=== PATIENT | male | born 1950 | race Caucasian/White ===

== ENCOUNTER 2022-06-25 13:26 | Emergency (ER) | payer MEDICARE, MEDICAID, SELFPAY ==
[2022-06-25 13:58] VITALS: BP 170/83; PULSE 59; RESP 20; TEMP 36.6; O2SAT 99; BMI 28.8
--- NOTE | 2022-06-25 15:29 | DI.MRI.S_ITS ---
PROCEDURE: MR LUMBAR SPINE WO CON INDICATIONS: back pain rt leg weakness urinary incont TECHNIQUE: Noncontrast sagittal T1 spin echo and T2 fast echo, sagittal STIR, and T2 fast spin echo through the lumbar spine. In cases with scoliosis, additional coronal T2 fast spin echo may be performed. COMPARISON: None. FINDINGS: Image quality: Excellent. Alignment and Curvature: Trace 2-3 mm of retrolisthesis of L1 on L2 and L2 on L3. Bone Marrow: No acute fracture. There is multilevel disc desiccation. Small annular fissure is seen at L4-L5. Spinal Cord: Cord terminates at T12. Normal appearance of the cauda equina nerve roots. Paraspinous Soft Tissues: No paravertebral masses. T12-L1: There is a central protrusion and a small diffuse disc bulge. Mild central narrowing without critical stenosis. The neural foramen are patent. L1-L2: There is a diffuse disc bulge with bilateral facet arthropathy. Mild displacement of the subarticular recesses bilaterally. Mild bilateral neural foraminal narrowing. L2-L3: There is a diffuse disc bulge, with an asymmetric extrusion in the right paracentral zone. Near complete effacement of the right subarticular recess with displaced L3 nerve root. There is also mild left subarticular recess narrowing. Mild left neural foraminal narrowing and moderate right neural foraminal narrowing. L3-L4: There is a diffuse disc bulge and facet arthropathy. Mild to moderate bilateral subarticular recess narrowing. Mild bilateral neural foraminal narrowing. L4-L5: Diffuse disc bulge and a small central protrusion. Facet arthropathy. Mild bilateral neural foraminal narrowing. L5-S1: Right paracentral protrusion with moderately effaced right subarticular recess. Superimposed bulge and facet arthropathy. [id number] right and left neural foraminal narrowing. IMPRESSION: Spondylosis as described above, characterized primarily by disc disease. There is a large right paracentral extrusion displacing the L3 nerve root at the L2-L3 subarticular recess. The traversing S1 nerve root at L5-S1 is also displaced by a disc protrusion. No critical central stenosis to suggest cauda equina syndrome. Dictated by: Juan Antonio Kincaid M.D. on 06/25/2022 at 16:37 Approved by: Juan Antonio Kincaid M.D. on 06/25/2022 at 16:44
--- NOTE | 2022-06-25 18:40 | ED.EXTPRO ---
HPI - Extremity Problem General Chief complaint: Extremity Problem,Nontraumatic Stated complaint: Sent for MRI by Time Seen by Provider: 06/25/22 18:40 Source: patient Mode of arrival: Wheelchair Limitations: no limitations History of Present Illness HPI Narrative: This is a 72-year-old male with history of Crohn's disease on Remicade and methotrexate with acute on chronic right low back pain. Patient states over the last several weeks he is had increasing right back pain that radiates down his leg initially was just down to his knee now it is down the whole leg. He is had some paresthesias that started at the upper thigh in our down the entire leg. He states he has sensation but it is clearly different right compared to left. Patient had quick movement today that rapidly worsened his pain. He states no urinary incontinence he knows that he needs to urinate but he is having trouble make into the bathroom sometimes because it is so painful to walk. Patient has had chronic rectal issues secondary to Crohn's disease and injury from Crohn surgeries and colon resection. No saddle anesthesia. Patient denies fevers or chills. No other GI or urinary symptoms. Patient has been taking hydrocodone 1 tablet every 8 hours along with gabapentin and ibuprofen and states his pain has been moderately well controlled. Patient has not had any prior back surgeries or interventions. Has had colon resection for his Crohn disease in the past. Patient was seeing 1 of the providers at the urgent care it would be saw him last week was asked to come back for recheck this week pain had worsened after movement and they suggested he come here for MRI today. Related Data Previous Rx's Medication Instructions Recorded hydrocodone 5 mg-acetaminophen 325 1 tab PO Q6H PRN pain #20 tabs 06/25/22 mg tablet methylprednisolone 4 mg tablets in See Rx Instructions PO .COMPLEX 06/25/22 a dose pack (Medrol (Akin)) #15 ea Review of Systems Review of Systems ROS Unobtainable: All systems reviewed & are unremarkable except as noted in HPI and below Patient History Social History Smoking Status: Never smoker Smoking Status: Never smoker Substance Use Type: does not use Exam Narrative Exam Narrative: GENERAL: Alert and oriented x three, male in mild distress. HEENT: Head normocephalic, atraumatic, EOMI, pupils reactive, face symmetric, moist mucous membranes NECK: Supple, full range of motion CARDIOVASCULAR: Regular rate and rhythm without murmurs, rubs or gallops. RESPIRATORY: Breath sounds equal bilaterally, no wheezes rales or rhonchi. ABDOMEN: Soft, nontender. Normoactive bowel sounds all 4 quadrants. No guarding or rebound, rigidity, no mass : No CVA tenderness BACK: No cervical, thoracic or lumbar vertebral point tenderness. Patient has decreased range of motion. Patient's gait is intact. No saddle anesthesia. Muscle strength is 5/5 in lower extremities, patient has slightly decreased strength with dorsiflexion on the right compared to left. DTRs are 2/4 and lower extremities. Dorsalis pedis and tibialis pulses are 2+ and lower extremities. Sensation is intact in the lower extremities although patient does appreciate difference in right versus left. EXTREMITIES: Normal range of motion, no clubbing or edema. Neurovascularly intact NEUROLOGICAL: Cranial nerves II through XII grossly intact. Moving all extremities SKIN: Warm, dry, no petechiae, no rashes or lesions. Initial Vital Signs Initial Vital Signs: Vital Signs Temperature 97.8 F 06/25/22 13:58 Pulse Rate 59 L 06/25/22 13:58 Respiratory Rate 20 06/25/22 13:58 Blood Pressure 170/83 H 06/25/22 13:58 Pulse Oximetry 99 06/25/22 13:58 Oxygen Delivery Method 06/25/22 13:58 Course Orders Ordered: Discontinued Medications Hydrocodone Bitart/Acetaminophen (Hydrocodone/Acet 5/325 Tablet) 2 tab PO NOW ONE Stop: 06/25/22 18:58 Last Admin: 06/25/22 19:13 Dose: 2 tab Documented By: ANDRESSA Ibuprofen (Ibuprofen 400 Mg Tablet) 800 mg PO NOW ONE Stop: 06/25/22 18:58 Last Admin: 06/25/22 19:13 Dose: 800 mg Documented By: AP Consultations Consultation #1: Dr. Billings, orthopedics. Review patient's exam and MRI findings. He asked the patient call tomorrow and they will get him in to the office this upcoming week to get him scheduled for treatment. Recommends Medrol Dosepak if no contraindication Time: 19:02 Vital Signs Vital signs: Vital Signs - 8 hr 06/25/22 13:58 Temperature 97.8 F Pulse Rate 59 L Respiratory Rate 20 Blood Pressure 170/83 H Pulse Oximetry 99 Oxygen Delivery Method Room Air MDM - Extremity (Nontraumatic) Imaging Data MRI Lumbar spine: Radiologist's Impression: Rajat Lui??72??M??1950 ? Allergy/Adv: Not Recorded Close Lumbar Spine MRI (Signed) Juan Antonio Kincaid - 06/25/22 Launch?[address] [address] Magnetic Resonance Report Signed Patient: Rajat Lui MR#: [id number] : 1950 Acct:[id number] Age/Sex: 72 / M Date of Service: 06/25/22 Loc: ED Accession Number: [id number] ?? Procedure: MR lumbar spine wo con Ordering Provider: Franchesca Almendarez D.O. PROCEDURE:? MR LUMBAR SPINE WO CON ? INDICATIONS:? back pain rt leg weakness urinary incont ? TECHNIQUE:? Noncontrast sagittal T1 spin echo and T2 fast echo, sagittal STIR, and T2 fast spin echo through the lumbar spine.? In cases with scoliosis, additional coronal T2 fast spin echo may be performed.? ? COMPARISON:? None. ? FINDINGS:? Image quality:? Excellent.? ? Alignment and Curvature:? Trace 2-3 mm of retrolisthesis of L1 on L2 and L2 on L3. ? Bone Marrow:? No acute fracture.? There is multilevel disc desiccation.? Small annular fissure is seen at L4-L5. ? Spinal Cord:? Cord terminates at T12.? Normal appearance of the cauda equina nerve roots. ? Paraspinous Soft Tissues:? No paravertebral masses.? ? T12-L1:? There is a central protrusion and a small diffuse disc bulge.? Mild central narrowing without critical stenosis.? The neural foramen are patent. ? L1-L2:? There is a diffuse disc bulge with bilateral facet arthropathy.? Mild displacement of the subarticular recesses bilaterally.? Mild bilateral neural foraminal narrowing. ? L2-L3:? There is a diffuse disc bulge, with an asymmetric extrusion in the right paracentral zone.? Near complete effacement of the right subarticular recess with displaced L3 nerve root.? There is also mild left subarticular recess narrowing.? Mild left neural foraminal narrowing and moderate right neural foraminal narrowing. ? L3-L4:? There is a diffuse disc bulge and facet arthropathy.? Mild to moderate bilateral subarticular recess narrowing.? Mild bilateral neural foraminal narrowing. ? L4-L5:? Diffuse disc bulge and a small central protrusion.? Facet arthropathy.? Mild bilateral neural foraminal narrowing. ? L5-S1:? Right paracentral protrusion with moderately effaced right subarticular recess.? Superimposed bulge and facet arthropathy.? Phyq-gj-uluawozz right and left neural foraminal narrowing. ? ? IMPRESSION:? Spondylosis as described above, characterized primarily by disc disease.? There is a large right paracentral extrusion displacing the L3 nerve root at the L2-L3 subarticular recess.? The traversing S1 nerve root at L5-S1 is also displaced by a disc protrusion. ? No critical central stenosis to suggest cauda equina syndrome. ? ? Dictated by: Juan Antonio Kincaid M.D. on 06/25/2022 at 16:37 ? ? Approved by: Juan Antonio Kincaid M.D. on 06/25/2022 at 16:44?? MDM Narrative Medical decision making narrative: This is a 72-year-old male with chronic back discomfort with sudden increase in right lower extremity pain and paresthesias with mild weakness with dorsiflexion but otherwise normal strength. Patient does not have any new incontinence although notes has trouble making it to the bathroom. Patient's MRI shows a large right paracentral extrusion displacing the L3 nerve root at L2 on 3 subarticular recess as well as a transversing S1 nerve root that is displaced by disc protrusion. Discussed with Orthopedic surgery recommends Medrol Dosepak, patient notes his pain is fairly well controlled on current pain regimen of hydrocodone, gabapentin and ibuprofen. Orthopedic surgery will see him this coming week and ask that patient call tomorrow morning. Discharge Plan Departure Patient Disposition: Home Clinical Impression: Lumbar back pain with radiculopathy affecting right lower extremity Instructions: DI for Lumbar Radiculopathy Activity Restrictions/Additional Instructions: Call Dr. Billings's office to set up follow-up in the next week he is aware of your MRI findings. Contact information is included below. There is a large right paracentral extrusion displacing the L3 nerve root which is likely the main cause of your symptoms today. You may continue [place] 1 tablet every 6-8 hours as needed along with your gabapentin. You may also continue ibuprofen up to 600 mg every 6 hours as needed. Please take steroids until completely gone. Prescription sent to [facility] in [place]. Please return for rapidly worsening symptoms, loss of bowel bladder control, increasing weakness, loss of sensation inability to lift or move her leg, intractable pain or other new or concerning symptoms. Prescriptions: New hydrocodone-acetaminophen 5-325 mg tablet 1 tab PO Q6H PRN (Reason: pain) Qty: 20 0RF methylprednisolone [Medrol (Akin)] 4 mg tablets,dose pack See Rx Instructions .ROUTE .COMPLEX Qty: 15 0RF Rx Instructions: Take 5 tablets p.o. x1 day, then 4 tablets p.o. x1 day, then 3 tablets p.o. x1 day, then 2 tablets p.o. x1 day, then 1 tablet p.o. x1 Referrals: Lois Mcpherson, [employer] [Primary Care Provider] - Elvia Billings MD [Physician] - Visit Report Forms: Patient Portal/API
[2022-06-25] MEDS: HYDROCODONE/ACET 5/325 TABLET 2 TAB PO (19:13)
[2022-06-25] MEDS: IBUPROFEN 400 MG TABLET 800 MG PO (19:13)
[2022-06-25 19:19] VITALS: BP 198/96; PULSE 88; RESP 18; O2SAT 98
== END 2022-06-25 19:34 | disposition home or self-care (01) ==
PROVIDERS: Emergency Provider Emergency Medicine; PCP Registered Nurse; Referring Provider Emergency Medicine
DX: M54.16 Radiculopathy, lumbar region (principal); M54.50 Low back pain, unspecified
CPT/HCPCS: 72148; 99283

== ENCOUNTER 2022-08-06 10:26 | Inpatient (IN) | payer MEDICARE, MEDICAID, SELFPAY ==
[2022-07-30 13:50] VITALS: BMI 28.6
[2022-08-06] VITALS (15 sets, daily range): BP systolic 121–168; BP diastolic 62–93; PULSE 56–74; RESP 10–25; TEMP 36.4–37.2; O2SAT 93–996; BMI 29.1; BMI 29.5
--- NOTE | 2022-08-06 | DI.RAD.S_ITS ---
PROCEDURE: XR LUMBAR SPINE 2-3V INDICATIONS: L2-3 TLIF TECHNIQUE: 2 views of the lumbar spine were acquired. COMPARISON: [facility] Outside Film, CT, CT LUMBAR SPINE WITHOUT CONTRAST, 06/18/2022, 10:58. [facility], MR, MR LUMBAR SPINE WO CON, 06/25/2022, 15:40. FINDINGS: Submitted fluoroscopic images demonstrate posterior/interbody fusion at the presumed L2-L3 level with posterior fixation hardware and intervertebral spacer in expected position. IMPRESSION: Fluoroscopic images demonstrating posterior/interbody fusion at the L2-L3. Dictated by: Michael Bahena [facility] Interpreted: Jez Herndon MD on 08/06/2022 at 16:53 Transcribed by: [place] on 08/06/2022 at 16:53 Approved by: Jez Herndon M.D. on 08/06/2022 at 17:08
[2022-08-06 11:21] LABS: COVID19 -Nasal RAPID Negative (Negative)
[2022-08-06] MEDS: FAMOTIDINE 20 MG/2 ML VIAL IV (13:42)
[2022-08-06] MEDS: GABAPENTIN 300 MG CAPSULE PO ×2 (13:42→21:01)
--- NOTE | 2022-08-06 13:43 | PM.PREOP ---
Pre-operative Note COVID-19 COVID-19 status: Negative Result date/Date tested (Pos, Neg/Pending): 08/05/22 Criteria for continued procedure: Expected advancement of disease process, Possibility delay results in more complex future surgery or treatment, Increased loss of function, Continuing or worsening of significant or severe pain, Deterioration of the patient's condition or overall health and Delay expected to result in less-positive ultimate med/surg outcome Interval Note History & Physical reviewed/Exam performed by Physician: Yes Changes to H&P: No
[2022-08-06] MEDS: LACTATED RINGERS 1,000 ML 42 ML IV (13:47)
--- NOTE | 2022-08-06 14:19 | PM.HP.1 ---
History of Present Illness History of Present Illness Date Patient Seen: 08/06/22 Time Patient Seen: 14:19 Date of Onset of Symptoms: 07/25/20 Chief complaint: Lumbar TILF Narrative: Mr. Lui is a 72 yo M with chronic back pain and right sided radiculopathy failing conservative care. After discussing risks and benefits of treatment options, patient elected to proceed with surgery. Patient History Medical History Acid reflux Brain aneurysm (~2009) Crohn's disease Dyslexia Fistula Herniated disc HLD (hyperlipidemia) HTN (hypertension) Irregular heart beat TONIE on CPAP Sensitive skin Small bowel obstruction Spinal stenosis Surgical History History of colonoscopy Hx of abdominal surgery Hx of appendectomy Hx of total colectomy Family & Social History Social History: household members none Prior Living Arrangements Mobile home Safety & Behavioral: Feels Safe in Current Yes Environment Been Physically Hurt or No Threatened By a Person Suicidal Ideation Description None Suicide Plan Description No Plan Tobacco & Substance use: Tobacco type pipe Smoking Status Former smoker alcohol intake never Substance Use Type does not use Meds Home Medications and Allergies Home Medications Medication Instructions Recorded Confirmed Type hydrocodone 5 mg-acetaminophen 325 1 tab PO Q6H PRN pain #20 tabs 06/25/22 08/06/22 Rx mg tablet amlodipine 5 mg tablet 5 mg PO DAILY 07/30/22 08/06/22 History aspirin 81 mg tablet,delayed 81 mg PO DAILY 07/30/22 08/06/22 History release diphenoxylate-atropine 2.5 2 tab PO QID PRN related to 07/30/22 08/06/22 History mg-0.025 mg tablet multiple liquid stools gabapentin 300 mg capsule 300 mg PO TID 07/30/22 08/06/22 History methotrexate sodium 2.5 mg tablet 2.5 mg PO SEEINSTR 07/30/22 08/06/22 History simvastatin 10 mg tablet 10 mg PO BEDTIME 07/30/22 08/06/22 History tizanidine 4 mg capsule 4 mg PO TID PRN Muscle Spasm 07/30/22 08/06/22 History Allergies Allergy/AdvReac Type Severity Reaction Status Date / Time adhesive tape Allergy Intermediate Rash with Verified 08/06/22 11:29 bandaids morphine AdvReac Severe Hallucinating Verified 08/06/22 11:29 with IV Morphine sulfasalazine AdvReac Severe It makes Verified 08/06/22 11:29 me crash, I can't eat or digest anything Exam Vital Signs (past 8 hours): - 08/06/22 11:34 Temperature 98.9 F Pulse Rate 56 L Respiratory Rate 16 Blood Pressure 149/71 H Pulse Oximetry 95 Oxygen Delivery Method Room Air Oxygen Delivery Method Room Air Back/Spine/Pelvis Other: painful movement of lumbar range of motion in the lumbar area. Neuro Other: BLE with weakness in hip flexion 4/5, + straight leg raise to the RLE. Sensiblity decreased to bilateral L2, L3 dermatome Objective Labs Labs: Laboratory Results - last 24 hr 08/06/22 10:43 SARS-CoV-2 (PCR) Negative Assessment & Plan Assessment & Plan narrative: Mr. Lui is a 72 yo M with acute on chronic back pain and recent worsening neurologic function with leg pain, weakness and development of urinary incontinence. He has a L2-3 extruded disc causing severe spinal stenosis and L2-3 level with spondylolisthesis measuring 5 mm. I discussed my findings with him. I discussed treatment options. Due to his rapidly deteriorating neurologic status and development of urinary incontinence, I am concerned about developement of cauda equina syndrome soon. I discussed treatment options with risks and benefits. He may benefit from L2-3 decompression with laminectomy and total facetectomies, which will render the already unstable L2-3 level further unstable and require a fusion procedure at the same time. Risks for surgery include but not limited to bleeding, infection, nerve/dura/bladder/bowel/blood vessel injury, need for additional procedure, even . Patient understands and would like to proceed with surgery. Time Spent With Patient Critical Care time: I spent a total of [] minutes of critical care time on this patient's care today; this time is exclusive of procedural time.
[2022-08-06] MEDS: CEFAZOLIN 2 GM/100 ML PREMIX 100 ML IV ×2 (14:27→22:07)
--- NOTE | 2022-08-06 14:57 | SUR.OPER ---
Prone on padded OR bed, head in foam head support, gel chest rolls, gel pad under knees, pillow under lower legs, toes free of pressure, arms secured on padded arm boards at <90 degrees abduction. Tape at thigh.
[2022-08-06] MEDS: BUPIVACAINE LIPOSOME 266 MG/20 ML VIAL INJ (15:15)
[2022-08-06] MEDS: BUPIVACAINE 0.25% (PF) 30 ML, EPINEPHrine 0.3 MG INJ (15:15)
[2022-08-06] MEDS: ACETAMINOPHEN IV 1,000 MG/100 ML VIAL 400 MG IV (15:30)
[2022-08-06] MEDS: LACTATED RINGERS 1,000 ML 120 ML IV (15:50)
--- NOTE | 2022-08-06 16:49 | P.OP_ITS ---
Operative Date/Time/Diagnoses Date of procedure: 08/06/22 Time of procedure: 13:40 Pre-op diagnosis: 1. L2-3 spinal stenosis with radiculopathy 2. L2-3 spondylolisthesis Post-op diagnosis: same Procedure & Clinicians Procedure: 1. L2-3 Postero-lateral and posterior interbody fusion 2. L2-3 interbody cage placement. 3. L2-3 decompressive laminectomy with bilateral facetecomies 4. L2-3 Posterior non-segmental instrumentation 5. [place] of bone marrow from iliac crest 6. Utilization of microsurgical technique and operating microscope Same procedure as scheduled: Yes Indications: Patient has been having chronic back pain and worsening lumbar radiculopathy. Patient failed multiple conservative management with worsening pain weakness and numbness in his lower extremity. Patient has been having difficulty performing activity of daily living. After discussing risks benefits of treatment options, patient elected proceed with surgery. Surgeon: Elvia Billings Project Estimator: Kym Dumont Anesthesia Type: General Operative Notes Closure Type: primary Specimen(s): none sent Prosthetic devices, grafts, tissues, transplants, or devices: Globus revolve screws, Rise cage Estimated Blood Loss (mL): 100 Blood products transfused: none Procedure in detail: Patient was seen in the preoperative area. Risks and benefits of the surgery was discussed with the patient. Informed consent was obtained from the patient and placed in the chart. Surgical site was marked. Patient was taken to the operative room. General anesthesia was administered. Prophylactic antibiotic was given to the patient less than 30 min before the incision was made. Patient was placed into a prone position on the Judson table. Patient's back was then prepped and draped in the sterile fashion. Time-out was performed at this time. Using AP and lateral C-arm imaging the interval between L2-3 was identified and marked on patient's back. A 2 inch incision 2 in from midline was made on the right side first. The fascia was incised in line with skin incision. Globus MARS retractors was placed inside the incision and docked onto the L2 lamina. Using microsurgical technique and operating microscope, a L2 laminectomy and L2- 3 facetectomy was performed using a Kerrison rongeur. The disc space at L2-3 was identified. And a total diskectomy was performed at L2-3 level. The endplates were decorticated using a rasp and shaver. The total diskectomy and decortication was performed at L2-3 level in order to to accomplish a L2-3 fusion. The local bone from the laminectomy and facetectomy was saved for local bone grafting. After the total diskectomy and decortication was completed, Trifecta bone graft material was combined with local bone that was harvested earlier. At this time, a separate skin is incision was made over the iliac crest. A Jamshidi needle was inserted into the iliac crest through a separate skin incision. 5 cc of bone marrow aspiration was obtained through the separate skin incision using a Jamshidi needle from the iliac crest. The bone marrow aspiration was combined with local bone and the Trifecta bone grafting material. The bone grafting material was placed into the L2-3 interbody space along with a expandable cage. The cage was expanded to its maximum height using the torque limiting screwdriver. At this time a mirror image incision was made on the left side. The fascia was incised in line with the skin incision. Globus MARS retractor was inserted and docked onto the L2-3 posterolateral gutter. Using the power drill, posterior- lateral decortication was performed at L2-3 level until bleeding cortical bone was identified. The remaining bone grafting material was placed into the L2-3 posterior lateral gutter he order to accomplish posterolateral fusion at the L2- 3 level. Using the double C-arm technique, pedicle screws were placed into the L2-3 pedicles bilaterally. This was done by placing the Jamshidi needle into the pedicles, then placing the guidewires over the Jamshidi needle, and finally placing the cannulated screws over the guidewires bilaterally. After the pedicle screws were placed, 2 titanium rods was locked into the heads of the pedicle screws using locking caps and torque limiting screwdriver. After all the hardware was placed, and confirmed with AP and lateral C-arm imaging, the wound was then irrigated with sterile normal saline and packed with Ray-Magdiel gauze for 3 min to accomplish hemostasis. After the gauze was removed the deep fascia was closed with #1 Vicryl suture. The subcutaneous layer was closed with 2-0 Vicryl. The skin was closed with skin frederic. Patient tolerated the procedure well. There were no complications. Complications: none Post-operative Condition: stable Disposition: PACU Plan for aftercare: Admit to inpatient hospital
[2022-08-06] MEDS: ONDANSETRON 4 MG/2 ML INJ IV (17:05)
[2022-08-06] MEDS: fentaNYL 100 MCG/2 ML INJ IV ×2 (17:13→17:20)
[2022-08-06] MEDS: HYDROMORPHONE 2 MG INJ IV ×3 (17:30→17:52)
--- NOTE | 2022-08-06 18:46 | PC.NURSE ---
Postop Note Patient to room 224 at 1840, alert and oriented x3. SpO2 95-96% RA. Using urinal independently. HR in the 50-60s. Dressing to lower back C/D/I. Denies pain, CMS is intact to BLEs. Denies nausea. Belongings (clothing and shoes) at bedside, cane and CPAP in room. Cell phone at bedside with glasses. Oriented to room and to call light/bed/tv controls. Bed alarm on.
[2022-08-06] MEDS: SODIUM CHLORIDE 0.9% 1,000 ML 100 ML IV (19:25)
[2022-08-06] MEDS: ATORVASTATIN 20 MG TABLET 10 MG PO (20:59)
[2022-08-06] MEDS: SENNOSIDES 8.6 MG TABLET 17.2 MG PO (21:00)
[2022-08-06] MEDS: DOCUSATE 100 MG CAPSULE PO (21:01)
[2022-08-06] MEDS: OXYCODONE IR 10 MG TABLET PO (21:07)
[2022-08-06] MEDS: TIZANIDINE 4 MG TABLET PO (22:07)
[2022-08-07] VITALS: BP 137/71; PULSE 59; RESP 18; TEMP 36.6; O2SAT 96
[2022-08-07] MEDS: OXYCODONE IR 10 MG TABLET PO ×3 (02:11→12:53)
[2022-08-07 04:00] VITALS: BP 158/72; PULSE 60; RESP 17; TEMP 36.7; O2SAT 96
[2022-08-07] MEDS: CEFAZOLIN 2 GM/100 ML PREMIX 100 ML IV (05:47)
[2022-08-07] MEDS: hydrOXYzine pamoate 25 MG CAPSULE PO ×2 (05:53→10:21)
[2022-08-07] MEDS: SODIUM CHLORIDE 0.9% FLUSH 10 ML IV ×3 (06:40→21:52)
[2022-08-07 07:50] VITALS: BP 177/82; PULSE 64; RESP 18; TEMP 37.3; O2SAT 97
[2022-08-07 08:29] LABS: Hematocrit 37.7 % (41-53); Hemoglobin 12.9 g/dL (13.5-17.5)
[2022-08-07] MEDS: GABAPENTIN 300 MG CAPSULE PO ×3 (08:40→21:51)
[2022-08-07] MEDS: AMLODIPINE 5 MG TABLET PO (08:40)
[2022-08-07] MEDS: TRAMADOL 50 MG TABLET PO ×3 (08:40→21:52)
[2022-08-07] MEDS: HYDROCODONE/ACET 5/325 TABLET 1 TAB PO (10:21)
--- NOTE | 2022-08-07 10:53 | OT.IP.EVAL ---
Current Diagnoses Spondylolisthesis, lumbar region (08/06/22) Spinal stenosis, lumbar region with neurogenic claudication (08/06/22) Surgery Performed Operation Date: 08/06/22 12:45 Actual Procedures p L2-3 TLIF - Elvia Billings MD Past Medical History (Last Reviewed 08/07/22 @ 10:56 by Kym Dumont PA-C) Acid reflux Brain aneurysm (~2009) Crohn's disease Dyslexia Fistula Herniated disc HLD (hyperlipidemia) HTN (hypertension) Irregular heart beat TONIE on CPAP Sensitive skin Small bowel obstruction Spinal stenosis Surgical History (Last Reviewed 08/07/22 @ 10:56 by Kym Dumont PA-C) History of colonoscopy Hx of abdominal surgery Hx of appendectomy Hx of total colectomy Occupational Therapy Inpatient Evaluation/Re-Eval M1 PT/OT-IP Prior Functional Status Start: 08/07/22 10:41 Freq: NEEDED Status: Active Protocol: Document 08/07/22 10:43 [facility] (Rec: 08/07/22 11:01 [facility] [id number]) Medical Review Prior Functional Status Medical History Reviewed Yes Social History Household Members none Living Arrangements Mobile home Comment pt lives alone with 4 steps into his mobile home, first 2 steps have a rail on right side Number of Stairs To Enter/Railing? 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 M2 OT-IP Current Condition Start: 08/07/22 11:58 Freq: Status: Active Protocol: Document 08/07/22 09:57 [facility] (Rec: 08/07/22 12:32 [facility] [id number]) Occupational Therapy Current Condition Current Condition Evaluation Date 08/07/22 Treatment Diagnosis S/p L2-3 TLIF Diagnosis Onset Date 08/06/22 Post Operative Precautions Lumbar Precautions Log Roll,No Twisting,Limit Bending,Lifting Restriction of 10 lbs,Gait Belt above Incisional Area M3 OT- IP Subjective and Pain Start: 08/07/22 11:58 Freq: Status: Active Protocol: Document 08/07/22 09:57 [facility] (Rec: 08/07/22 12:32 [facility] [id number]) OT- Subjective Occupational Therapy Visit Type Type Initial Evaluation Visit Start Time 09:57 Visit Stop Time 10:53 Total Visit Minutes 56 Occupational Therapy Visit Comments Patient Comments Pt agreed to get up. Patient/Caregiver Goals To be able to take care of himself again and wanting to go to skilled rehab. OT Pain Assessment Pain When Pain Assessed At Rest M4 OT- IP ADL's Start: 08/07/22 11:58 Freq: Status: Active Protocol: Document 08/07/22 09:57 [facility] (Rec: 08/07/22 12:32 [facility] [id number]) OT [id number] Comments OT Self-Feeding Comments not at meal time OT ADL-Grooming General Evaluation Grooming Ability Standby Assistance Areas Needing Assistance Retrieving/Set-up of Grooming Items Comments OT Grooming Comments while seated OT ADL-Oral Care General Eval Oral Care Ability Independent Areas of Assistance Retrieving/Set-Up of Items Comments Oral Care Comments while seated OT ADL-Dressing General Eval Lower Body Dressing Ability Maximum Assistance Areas Needing Assistance Socks Comments OT Dressing Comments 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 OT ADL-Toileting Comments OT Toileting Comments Pt attempted to urinate in the urinal while seated and unsuccessful. Pt states at home has to get up often due to his Crohn's. OT ADL-Bathing Comments OT Bathing Comments Not performed. M5 OT- IP IADL's Start: 08/07/22 11:58 Freq: Status: Active Protocol: Document 08/07/22 09:57 [facility] (Rec: 08/07/22 12:32 [facility] [id number]) OT-Instrumental Activities of Daily Living Home Safety Awareness Awareness of Need for Assistance at Home Good Awareness Medication Management Medication Management Comments Pt does his own. Money Management Money Management Comments Pt does his own. Meal Preparation Meal Preparation Comments Pt does his own. Spinning Lathe Operator Automatic Spinning Lathe Operator Automatic Comments Pt states lately has been harder to do due to his pain. M6 OT- IP Functional Cognition Start: 08/07/22 11:58 Freq: Status: Active Protocol: Document 08/07/22 09:57 [facility] (Rec: 08/07/22 12:32 [facility] [id number]) Cognitive Factors Limiting Selfcare Function Cognitive Ability Level of Alertness Alert Patient Orientation Name Attention Span Ability Capable of Focused Attention, Capable of Sustained Attention Ability to Follow Commands Able to Follow One Step Commands Memory Description No Deficits Noted Safety Awareness No Deficits Noted Cognitive Comments Cognitive Assessment Comments Pt able to follow his back precautions and follow commands during ADL and IADL needs. OT- Vision and Hearing OT- Hearing Assessment OT- Hearing Assessment WFL OT- Vision Assessment Visual Acuity Glasses For Reading M7 OT- IP Mobility and Balance Start: 08/07/22 11:58 Freq: Status: Active Protocol: Document 08/07/22 09:57 [facility] (Rec: 08/07/22 12:32 [facility] [id number]) OT- Bed Mobility Assessment Rolling Level of Assistance Moderate Assistance Supine to Sit Supine to Sit Assist Maximum Assistance Scooting Scooting to Edge of Bed Standby Assistance,Moderate Assistance OT-Transfer Assessment Sit to and From Stand Sit to and from Stand Minimal Assistance,1 Person Assistance Transfers Transfer Ability Minimal Assistance,1 Person Assistance Technique Transfer Destination Bed,Chair Transfer Technique Stand Step Pivot Devices Transfer Assistive Devices Gait Belt,Front Wheeled Walker Comments Mobility Comments BP supine 158/82, sitting 148/ 78, and standing 122/80 . MODA to roll and MAX A to help get trunk upright from sidelying. OT- Balance Assessment Sitting Balance and Reactions Static Sitting Balance Ability Normal Dynamic Sitting Balance Ability Good Standing Balance and Reactions Static Standing Balance Ability Fair M8 OT- IP Objective Assessments Start: 08/07/22 11:58 Freq: Status: Active Protocol: Document 08/07/22 09:57 [facility] (Rec: 08/07/22 12:32 [facility] [id number]) OT Gross Range of Motion Upper Extremity Range of Motion Assessment Within Functional Limits OT Strength Upper Extremity Strength Assessment Within Functional Limits OT-Muscle Tone Assessment Muscle Tone WNL Yes OT Sensation Assessment Comments Summary Comments intact for light touch M9 OT- IP Assessment and Plan Start: 08/07/22 11:58 Freq: Status: Active Protocol: Document 08/07/22 09:57 [facility] (Rec: 08/07/22 12:32 [facility] [id number]) OT Summary Assessment and Plan Potential Rehabilitation Potential Good Analytic Complexity at Evaluation Low Summary OT Impairments Pain,Balance,Functional Mobility,Grooming,Dressing, Toileting,Bathing,Toilet Transfers,Shower Transfers, Activity Tolerance Progress Towards Goals Progressing Toward Goals,Slow Progress due to Pain Assessment Summary Pt low complexity and main barriers are steps, needing MAXA for bed mobility needs and assist for ADL's. Pt will greatly benefit from skilled rehab to continue to pratice back precautions for ADl and mobility needs. In addition to build up strength as pt has had recent falls . Goals Self-Feeding Goal Independent Grooming Goal Independent Dressing Goal Independent Toileting Goal Independent Bathing Goal Independent Toilet Transfer Goal Independent Shower Transfer Goal Independent Days to Meet Goals 20 Frequency of Treatment Frequency Of Treatment Once a Day Treatment Plan OT Treatment Plan ADL Training,Functional Mobility,Patient/Family Education,Discharge Planning Discharge Recommendations OT Discharge Recommendations SNF Rehab Transportation Needs at Discharge Wheelchair/Cabulance
--- NOTE | 2022-08-07 10:55 | P.PN_ITS ---
Subjective Subjective Date Patient Seen: 08/07/22 Time Patient Seen: 07:45 Interval history: Patient is complaining of moderate to severe low back pain. He does not feel his current medication is helping significantly. He notes he has baseline right-sided lower extremity numbness, this is mildly improved since surgery. He is not worked with physical therapy or occupational therapy yet. Exam Vital Signs (past 8 hours): - 08/07/22 04:00 08/07/22 07:50 Temperature 98.0 F 99.2 F Pulse Rate 60 64 Respiratory Rate 17 18 Blood Pressure 158/72 H 177/82 H Pulse Oximetry 96 97 Oxygen Delivery Method Room Air Oxygen Flow Rate 0 Narrative Exam Narrative: Pleasant 72-year-old male, resting in bed, mild distress due to pain. Dressing is clean, dry, intact. There is no surrounding erythema or induration. Bilateral lower extremity: Motor functions are grossly intact, calves are soft and nontender to palpation. Sensation is decreased in the right medial malleolus as compared to left, otherwise sensation is grossly intact throughout. Objective Labs Result Diagrams: 08/07/22 08:14 Labs: Laboratory Results - last 24 hr 08/06/22 08/07/22 10:43 08:14 Hgb 12.9 L Hct 37.7 L SARS-CoV-2 (PCR) Negative [facility] Medical History Acid reflux Brain aneurysm (~2009) Crohn's disease Dyslexia Fistula Herniated disc HLD (hyperlipidemia) HTN (hypertension) Irregular heart beat TONIE on CPAP Sensitive skin Small bowel obstruction Spinal stenosis Surgical History History of colonoscopy Hx of abdominal surgery Hx of appendectomy Hx of total colectomy Social History household members: none Smoking Status: Former smoker alcohol intake: never Assessment & Plan Post-op Postoperative Procedures: Procedures Operation Date: 08/06/22 12:45 Actual Procedure Side Surgeon p L2-3 TLIF Elvia Billings MD Postoperative day: 1 Postoperative status: marginal pain control Postoperative status narrative: Stable status post L2-3 TLIF Postoperative plan narrative: -mobilize with PT/OT. Limit bending, lifting, twisting x6 weeks. Weightbearing as tolerated with front wheel walker or cane. -continue with multimodal pain management. Added tramadol for breakthrough pain. -disposition likely in 1-2 days. Home versus SNF. The patient lives alone. Quality VTE Deep Vein Thrombosis/Pulmonary Embolism Present on Admission: No
--- NOTE | 2022-08-07 11:01 | PT.IIE ---
Current Diagnoses Spondylolisthesis, lumbar region (08/06/22) Spinal stenosis, lumbar region with neurogenic claudication (08/06/22) Surgery Performed Operation Date: 08/06/22 12:45 Actual Procedures p L2-3 TLIF - Elvia Billings MD Surgical History (Last Reviewed 08/07/22 @ 10:56 by Kym Dumont PA-C) History of colonoscopy Hx of abdominal surgery Hx of appendectomy Hx of total colectomy Medical History (Last Reviewed 08/07/22 @ 10:56 by Kym Dumont PA-C) Acid reflux Brain aneurysm (~2009) Crohn's disease Dyslexia Fistula Herniated disc HLD (hyperlipidemia) HTN (hypertension) Irregular heart beat TONIE on CPAP Sensitive skin Small bowel obstruction Spinal stenosis Physical Therapy Inpatient Evaluation/Re-Eval M1 PT/OT-IP Prior Functional Status Start: 08/07/22 10:41 Freq: NEEDED Status: Active Protocol: Document 08/07/22 10:43 [facility] (Rec: 08/07/22 11:01 [facility] [id number]) Medical Review Prior Functional Status Medical History Reviewed Yes Social History Household Members none Living Arrangements Mobile home Comment pt lives alone with 4 steps into his mobile home, first 2 steps have a rail on right side Number of Stairs To Enter/Railing? 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 M2 PT-IP Current Condition Start: 08/07/22 10:41 Freq: NEEDED Status: Active Protocol: Document 08/07/22 10:43 [facility] (Rec: 08/07/22 11:01 [facility] [id number]) Physical Therapy Current Condition Current Condition Evaluation Date 08/07/22 Treatment Diagnosis Lumbar LILF Onset Date surgery 08/06/22 M3 PT-IP Subjective Start: 08/07/22 10:41 Freq: NEEDED Status: Active Protocol: Document 08/07/22 10:43 [facility] (Rec: 08/07/22 11:01 [facility] [id number]) Subjective Physical Therapy Visit Type Type Initial Evaluation Visit Start Time 10:00 Visit Stop Time 10:35 Total Visit Minutes 35 Physical Therapy Visit Comments Patient Comments OT was in room so treatment was continued together, pt was sitting at the edge of bed and his pain 9/10 nurse was bringing in muscle relaxants for him Therapy Pain Assessment Pain When Pain Assessed At Rest Pain Present Pain Present Pain Reported Location back Intensity 9 Scale Used Numeric (0 - 10) Description With Movement Pain Management Techniques Apply Cold M4 PT-IP Mobility and Gait Start: 08/07/22 10:41 Freq: NEEDED Status: Active Protocol: Document 08/07/22 10:43 [facility] (Rec: 08/07/22 11:01 [facility] [id number]) PT-Bed Mobility Assessment Rolling Type of Rolling Log Rolling Level of Assist Moderate Assistance Supine to Sit Supine to Sit Maximum Assistance Scooting Scooting to Edge of Bed Maximum Assistance PT-Transfer Assessment Sit to and From Stand Sit to and from Stand Minimal Assistance Equipment Transfer Assistive Device Gait Belt,Front Wheeled Walker Orthotic/Prosthetic Devices or Brace: No Transfers Transfer Destination Chair Transfer Technique Stand Step Pivot Transfer Ability Level of Assist Minimal Assistance Comments Mobility Comments pt required mod assist for rolling and bax assist for supine to sit as well as scooting to edge of b ed, he sat at the edge of bed for approx 5 min and took muscle relaxors. He felt he could attempt standing and stood with fww and min A, pt ambulated to the bedside chair with fww where he sat with min A Gait Assessment Gait Gait Assistance Required: Minimum Assistance Distance (Feet) 8 Able to Maintain Weight Bearing Status Yes During Gait Assistive Devices Assistive Device Gait Belt,Front Wheeled Walker Orthotic/Prosthetic Devices or Brace: No Gait Deviations General Gait Pattern Ataxic,Decreased Stride Length ,Wide Based Gait Factors Limiting Gait Function Factors Limiting Gait Function Decreased Sensation,Pain Comments Gait Comments pt has had numbness prior to surgey in R LE, he notes it is not as numb now after surgery but putting pressure through his right leg caused spinal pain. He required heavy use of his UE on the FWW to decrease the strain to his back with gait PT-Balance Assessment Sitting Balance and Reactions Static Sitting Balance Ability Fair Dynamic Sitting Balance Ability Fair Standing Balance and Reactions Static Standing Balance Ability Fair Dynamic Standing Balance Ability Fair M5 PT-IP Objective Assessments Start: 08/07/22 10:41 Freq: NEEDED Status: Active Protocol: Document 08/07/22 10:43 [facility] (Rec: 08/07/22 11:01 [facility] [id number]) Orientation Orientation/Cognition Level of Alertness Alert Gross Range of Motion Upper Extremity ROM Assessment Within Functional Limits Lower Extremity ROM Assessment Bilaterally Impaired Strength Upper Extremity Strength Assessment Within Functional Limits Lower Extremity Strength Assessment Right Impaired Comments Strength Comments pt 3/5 for all active movements, further testing against resistance needs further assessment as pt was in pain in his low back Sensation Assessment Sensation Light Touch Intact Comments Sensation Comments pt notes he is able to feel light touch to his right LE, he described his numbness as internal in the leg he notes the only place he felt the numbness was in his calf this am on the right side M6 PT-IP Treatment Start: 08/07/22 10:41 Freq: NEEDED Status: Active Protocol: Document 08/07/22 10:43 [facility] (Rec: 08/07/22 11:01 [facility] [id number]) Physical Therapy Treatment Education Education Provided Precautions,Post-Op Packet, Safety M7 PT-IP Assessment and Plan Start: 08/07/22 10:41 Freq: NEEDED Status: Active Protocol: Document 08/07/22 10:43 [facility] (Rec: 08/07/22 11:01 [facility] [id number]) PT Summary Assessment and Plan Potential Rehabilitation Potential Good Status of Condition at Evaluation Evolving Summary Impairments Pain,ROM,Strength,Balance,Bed Mobility,Transfers,Gait, Activity Tolerance Assessment Summary Rajat is a 72 year old male day one post op L2-3 postero- lateral and posterior interbody fusion. He lives alone on [address] in a trailer with 4 steps to enter. He notes the hallways are wide enough for a walker to fit. He has been using a cane for the past couple of months as his right leg was giving out on him without warning and he had been falling. He notes today that the numbness in his right leg feels different and he feels it primarily in his calf. He was in pain with bed mobility that increased to 9/10. He was given muscle relaxors and as able to work with PT. Rajat was mod assist for log rolling and max A for sidelying to sit as well as scooting to the edge of bed. Once up Rajat was able to perform sit-stand with min A. He was in quite a bit of pain with ambulation in his low back. Stepping onto his right leg increased pain. He took 4-5 steps before transferring to the bedside chair. He was given ice for his back and positioned comfortably. OT was still present and had a few more tests to assess. Pt would like to return home but agrees to a short time at rehab after hospital discharge to help get more mobile prior to returning home Ind. Goals Bed Mobility Goal Contact Guard Assistance Transfer Goal Contact Guard Assistance Gait Goal Contact Guard Assistance Gait Distance 50ft Other Goals pt will be able to ascend and descend 4 steps with handrail on right side Days to Meet Goals 5 Frequency of Treatment Frequency Of Treatment Twice a Day Treatment Plan Physical Therapy Treatment Plan Bed Mobility Training,Transfer Training,Gait Training, Therapeutic Exercise,Discharge Planning Precautions Lumbar Precautions Log Roll,No Twisting,Gait Belt above Incisional Area Weight Bearing Status Weight Bearing Status Full Weight Bearing Recommendations To Nursing Amount of Assist Needed 1 Person Assist Discharge Recommendations PT Discharge Recommendations Acute Rehab Transportation Needs at Discharge Private Vehicle
[2022-08-07 12:00] VITALS: BP 133/79; PULSE 76; RESP 16; TEMP 36.7; O2SAT 97
--- NOTE | 2022-08-07 12:36 | CM.DANOTE ---
Initial Discharge Assessment Note: Case reviewed, met with patient. Introduced self and role. Payer: Medicare and Medicaid. PCP: Lois Mcpherson 72 year old single male patient admitted yesterday for a TLIF with Dr Billings. Today he is experiencing quite a bit of pain. PT/OT recommending SNF upon discharge. Patient lives alone in a trailer in [place] and has no caregiver available. He states his water heater broke and so has no hot water at this time. His insurance is Medicare so he will have to wait the 3 midnights, he is inpatient. [facility] can accept him on Thursday08/09/22 but he will have to have arranged transportation to their facility. Plan: Discharge to [facility] on Thursday if medically stable, per MD. He will arrange for a friend to transport him. MARY LOU Discharge Planning/Care Management CM Discharge Assessment Start: 08/07/22 12:30 Freq: Status: Active Protocol: Document 08/07/22 12:30 (Rec: 08/07/22 12:36 [id number]) Discharge Planning Assessment Assigned Nuclear Medicine Technician Macrina Arrington RN/ROSIEP Advance Directives? No History Provided By Patient,Medical Record Prior Living Arrangements Mobile home Comment pt lives alone with 4 steps into his mobile home, first 2 steps have a rail on right side. Currently no hot water in trailer he states. Household Members none Type of transporation used prior to Drives own vehicle admit Independent with ADL's Yes Is patient alert and oriented? Yes Needs Assistance With Bathing,Toileting,Managing Medications,Home Chores / Shopping Caregiver for Another No Barriers to Discharge Yes Comment Pain Discharge Plan [facility] Facility Transportation Arrangement Since will be dc'd on Thursday , he will need to have his friend transport him to [facility]. If patient plan is SNF: Has PASSR been starting completed? Whiteboard Updated in Patient Room with Yes name and ext. # of Nuclear Medicine Technician Review Status In Process Next Review Type Continued Stay Review Pre-Anesthesia Assessment Start: 07/30/22 13:50 Freq: Status: Complete Protocol: Document 07/30/22 13:50 [facility] (Rec: 07/30/22 15:29 [facility] [id number]) Pre-Anesthesia Assessment Preferred Name Bill Patient Information Reviewed Via Phone Assessment Assessment Completed With Patient Comment Labs done per pt, not here, pt needs to do ECG, Covid-RAPID on admit Primary Care Provider Lois Mcpherson Seen Specialist in Last 12 Months Yes Specialist Seen Orthopedist,Other Comment GI Primary Language Arabic Helper Animal Laboratory Required No Height 165.1 cm Weight 78.018 kg Body Mass Index (BMI) 28.6 Hearing Ability Normal Visual Assist Glasses Dentition Type Teeth, Natural Present,Teeth, Broken Other Aids Yes: Mouth guard, CPAP, pt has dyslexia Hx Anesthesia Reactions Yes: Spinal - long delay to clear Hx Family Anesthesia Reaction Yes: My brother is sensitive to anesthesia Hx Malignant Hyperthermia No Hx Blood Transfusions Yes: During colectomy Hx Blood Transfusion Reaction No Anesthesia Review Requested No Alcohol Intake Frequency Other: Pt denies Smoking Status Former smoker Tobacco type pipe how long ago did patient quit smoking Quit in college Substance Use Type does not use Pain Present Pain Reported Musculoskeletal Symptoms Abnormal Gait,Back Pain, Difficulty Walking,Muscle Weakness,Numbness History of Falling (Recent or History of Yes ) Patient is completely paralyzed or No completely immobile Prosthesis or Orthotic Device Cane Mental Status Oriented to own ability Is patient on oxygen? No Does patient have VEDRUGO/SOB Yes: Due to deconditioning, inactivity Hx Sleep Apnea Yes CPAP/BIPAP use prescribed and used routinely Will Bring CPAP/BIPAP DOS Yes Currently Taking a Beta [place] No Hx Chest Pain No Hx SOB Yes: Due to deconditioning, inactivity Hx Syncope or Dizziness No Anti-Coagulant Therapy No Has a Boiler Out No Cardiac Testing No Hx Pacemaker/ICD No Pacemaker Rep Required? No Cardiac Clearance Received No Diet Type At Home Regular Dysphagia No Gastrointestinal Symptoms Diarrhea Comment liquid stools r/t colectomy Bladder Pattern Incontinent Urinary Catheter Present No Hx Urinary Self Catheterization No Diabetes No Hx Drug Resistant Organism No Presence of External or Internal Medical Yes: CPAP, mouth guard Devices Have you had any close contact with No someone diagnosed with COVID-19? Received a COVID vaccine? Yes Received all doses? Yes Marital Status Single Lives With none Current Living Arrangements Mobile home Support System None Does the Patient Have Assistance After No: Jeannine lives next door Surgery and can check in on pt, but no one for overnight Patient Discharge Plan Description Return Home Comment Pt not advised on length of stay per surgeon Feels Safe in Current Environment Yes Been Physically Hurt or Threatened By a No Person in Current Environment Do you have thoughts of harming yourself None or others? Are you currently considering suicide? No Do you have a plan to hurt yourself or No Plan others? Do You Have Any Spiritual Beliefs That No May Affect Your HC Choices? Do You Have Any Cultural Practices That No May Affect Your HC Choices? Who Can We Speak to About Patient's Care Family, friends Identifying Code for Release of Patient Declines to issue Information Health Care Proxy/Next of Kin Jay (brother) Health Care Proxy or cell: Emergency Contact Name Jay (brother) Emergency Contact or cell: Advance Directives? No Power of Manager Of Enterprise Yes Power of Manager Of Enterprise Name Jay holbrooker) Power of Manager Of Enterprise or cell: [phone] PAC Instructions Bring CPAP/BIPAP,Durable medical equipment,Medications to take/avoid,Nasal antibiotic ,No ETOH/petroleum product on skin DOS,NPO,Post-op transportation,Pre-surgical wash,Sturdy shoes/comfortable clothes,Do not bring valuables and remove jewelry
[2022-08-07] MEDS: TIZANIDINE 4 MG TABLET PO (12:54)
--- NOTE | 2022-08-07 13:26 | PT.IPTN ---
Current Diagnoses Spondylolisthesis, lumbar region (08/06/22) Spinal stenosis, lumbar region with neurogenic claudication (08/06/22) Surgery Performed Operation Date: 08/06/22 12:45 Actual Procedures p L2-3 TLIF - Elvia Billings MD Physical Therapy Treatment Note M2 PT-IP Current Condition Start: 08/07/22 10:41 Freq: NEEDED Status: Active Protocol: Document 08/07/22 10:43 [facility] (Rec: 08/07/22 11:01 [facility] [id number]) Physical Therapy Current Condition Current Condition Evaluation Date 08/07/22 Treatment Diagnosis Lumbar LILF Onset Date surgery 08/06/22 M3 PT-IP Subjective Start: 08/07/22 10:41 Freq: NEEDED Status: Active Protocol: Document 08/07/22 13:06 KS (Rec: 08/07/22 15:35 KS [id number]) Subjective Physical Therapy Visit Type Type Treatment Note Visit Start Time 13:06 Visit Stop Time 13:26 Total Visit Minutes 20 Number of BEHAVIOR SUPPORT SPECIALIST Visits 1 Therapy Pain Assessment Pain When Pain Assessed At Rest Pain Present Pain Present Pain Reported Location back Intensity 8 Scale Used Numeric (0 - 10) Description With Movement Pain Management Techniques Modification of Treatment,Re- positioning M4 PT-IP Mobility and Gait Start: 08/07/22 10:41 Freq: NEEDED Status: Active Protocol: Document 08/07/22 13:06 KS (Rec: 08/07/22 15:35 KS [id number]) PT-Bed Mobility Assessment Rolling Type of Rolling Log Rolling Level of Assist Moderate Assistance Sit to Supine Sit to Supine Maximum Assistance,1 Person Assistance Scooting Scooting to Edge of Bed Moderate Assistance PT-Transfer Assessment Sit to and From Stand Sit to and from Stand Moderate Assistance,1 Person Assistance,Use of Upper Extremities Equipment Transfer Assistive Device Gait Belt,Front Wheeled Walker Orthotic/Prosthetic Devices or Brace: No Transfers Transfer Destination Bed Transfer Technique Pt ambulated w/ FWW Transfer Ability Level of Assist Minimal Assistance,Moderate Assistance Comments Mobility Comments Pt in chair upon arrival and agreeable to get back into bed but reporting high level of pain. Mod A and cues for scooting EOC and Mod A for sit <>stand w/ FWW. Once standing, pt agreed to ambulate and walked ~20 ft w/ FWW. Pt ambulated very slowly w/ decreased stride and foot clearance. Mod A for slow descent when sitting and Max A for sit<>Sup. Pt left in bed w/ all needs in reach. Gait Assessment Gait Gait Assistance Required: Minimum Assistance Distance (Feet) 20 Able to Maintain Weight Bearing Status Yes During Gait Assistive Devices Assistive Device Gait Belt,Front Wheeled Walker Orthotic/Prosthetic Devices or Brace: No Gait Deviations General Gait Pattern Ataxic,Decreased Stride Length ,Decreased Feet Clearance,Wide Based Gait Factors Limiting Gait Function Factors Limiting Gait Function Decreased Sensation,Pain Comments Gait Comments pt has had numbness prior to surgey in R LE, he notes it is not as numb now after surgery but putting pressure through his right leg caused spinal pain. He required heavy use of his UE on the FWW to decrease the strain to his back with gait PT-Balance Assessment Sitting Balance and Reactions Static Sitting Balance Ability Fair Dynamic Sitting Balance Ability Fair Standing Balance and Reactions Static Standing Balance Ability Fair Dynamic Standing Balance Ability Fair Device Used FWW M5 PT-IP Objective Assessments Start: 08/07/22 10:41 Freq: NEEDED Status: Active Protocol: Document 08/07/22 10:43 [facility] (Rec: 08/07/22 11:01 [facility] [id number]) Orientation Orientation/Cognition Level of Alertness Alert Gross Range of Motion Upper Extremity ROM Assessment Within Functional Limits Lower Extremity ROM Assessment Bilaterally Impaired Strength Upper Extremity Strength Assessment Within Functional Limits Lower Extremity Strength Assessment Right Impaired Comments Strength Comments pt 3/5 for all active movements, further testing against resistance needs further assessment as pt was in pain in his low back Sensation Assessment Sensation Light Touch Intact Comments Sensation Comments pt notes he is able to feel light touch to his right LE, he described his numbness as internal in the leg he notes the only place he felt the numbness was in his calf this am on the right side M6 PT-IP Treatment Start: 08/07/22 10:41 Freq: NEEDED Status: Active Protocol: Document 08/07/22 13:06 KS (Rec: 08/07/22 15:35 KS [id number]) Physical Therapy Treatment Exercises Exercises Ankle Pumps,Gluteal Sets Education Education Provided Precautions,Post-Op Packet, Safety M7 PT-IP Assessment and Plan Start: 08/07/22 10:41 Freq: NEEDED Status: Active Protocol: Document 08/07/22 13:06 KS (Rec: 08/07/22 15:35 KS [id number]) PT Summary Assessment and Plan Potential Rehabilitation Potential Good Summary Impairments Pain,ROM,Strength,Balance,Bed Mobility,Transfers,Gait, Activity Tolerance Progress Towards Goals Slow Progress due to Pain Assessment Summary Pt required Mod A for sit<> stand and Max A for bed mobility this PM. Able to increase ambulation distance to 20 ft w/ FWW however remains limited by pain and weakness. Pt lives alone and not safe to d/c home at this time. He will require SNF to improve strength and functional mobility independence. Goals Bed Mobility Goal Contact Guard Assistance Transfer Goal Contact Guard Assistance Gait Goal Contact Guard Assistance Gait Distance 50ft Other Goals pt will be able to ascend and descend 4 steps with handrail on right side Days to Meet Goals 5 Frequency of Treatment Frequency Of Treatment Twice a Day Treatment Plan Physical Therapy Treatment Plan Bed Mobility Training,Transfer Training,Gait Training, Therapeutic Exercise,Discharge Planning Precautions Lumbar Precautions Log Roll,No Twisting,Gait Belt above Incisional Area Weight Bearing Status Weight Bearing Status Full Weight Bearing Recommendations To Nursing Amount of Assist Needed 1 Person Assist Discharge Recommendations PT Discharge Recommendations SNF Rehab Transportation Needs at Discharge Private Vehicle
[2022-08-07 15:53] VITALS: BP 114/59; PULSE 63; RESP 20; TEMP 37.3; O2SAT 95
[2022-08-07 21:30] VITALS: BP 117/51; PULSE 70; RESP 14; TEMP 37.4; O2SAT 97
[2022-08-07] MEDS: SENNOSIDES 8.6 MG TABLET 17.2 MG PO (21:51)
[2022-08-07] MEDS: DOCUSATE 100 MG CAPSULE PO (21:52)
[2022-08-07] MEDS: ATORVASTATIN 20 MG TABLET 10 MG PO (21:52)
[2022-08-08 00:20] VITALS: BP 147/76; PULSE 77; RESP 14; TEMP 37.1; O2SAT 95
[2022-08-08] MEDS: TIZANIDINE 4 MG TABLET PO ×4 (03:28→20:16)
[2022-08-08] MEDS: TRAMADOL 50 MG TABLET PO ×4 (03:28→20:16)
[2022-08-08 08:50] VITALS: BP 128/67; PULSE 76; RESP 18; TEMP 37; O2SAT 97
[2022-08-08] MEDS: AMLODIPINE 5 MG TABLET PO (09:21)
[2022-08-08] MEDS: SODIUM CHLORIDE 0.9% FLUSH 10 ML IV ×2 (09:21→20:15)
[2022-08-08] MEDS: GABAPENTIN 300 MG CAPSULE PO ×3 (09:21→20:16)
--- NOTE | 2022-08-08 11:58 | PT.IPTN ---
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) Arthrodesis status (08/06/22) Surgery Performed Operation Date: 08/06/22 12:45 Actual Procedures p L2-3 TLIF - Elvia Billings MD Physical Therapy Treatment Note M2 PT-IP Current Condition Start: 08/07/22 10:41 Freq: NEEDED Status: Active Protocol: Document 08/07/22 10:43 [facility] (Rec: 08/07/22 11:01 [facility] [id number]) Physical Therapy Current Condition Current Condition Evaluation Date 08/07/22 Treatment Diagnosis Lumbar LILF Onset Date surgery 08/06/22 M3 PT-IP Subjective Start: 08/07/22 10:41 Freq: NEEDED Status: Active Protocol: Document 08/08/22 11:46 KS (Rec: 08/08/22 13:27 KS [id number]) Subjective Physical Therapy Visit Type Type Treatment Note Visit Start Time 11:46 Visit Stop Time 11:58 Total Visit Minutes 12 Number of BARREL MARKER Visits 2 Physical Therapy Visit Comments Patient Comments Pt c/o increase pain and fatigue. Therapy Pain Assessment Pain When Pain Assessed After Treatment Pain Present Pain Present Pain Reported Location back Scale Used not quantified Description With Movement Pain Management Techniques Modification of Treatment,Re- positioning M4 PT-IP Mobility and Gait Start: 08/07/22 10:41 Freq: NEEDED Status: Active Protocol: Document 08/08/22 11:46 KS (Rec: 08/08/22 13:27 KS [id number]) PT-Bed Mobility Assessment Rolling Type of Rolling Log Rolling Level of Assist Moderate Assistance Sit to Supine Sit to Supine Moderate Assistance,1 Person Assistance Scooting Scooting to Edge of Bed Moderate Assistance PT-Transfer Assessment Sit to and From Stand Sit to and from Stand Moderate Assistance,1 Person Assistance,Use of Upper Extremities Equipment Transfer Assistive Device Gait Belt,Front Wheeled Walker Orthotic/Prosthetic Devices or Brace: No Transfers Transfer Destination Bed Transfer Technique Pt ambulated w/ FWW Transfer Ability Level of Assist Moderate Assistance,1 Person Assistance,Use of Upper Extremities Comments Mobility Comments Pt in chair upon arrival and wanting to get back into bed. Mod A and cues for scooting EOC, Mod A and cues for sit<> stand w/ FWW. Pt relies heavily on BUE and c/o increased pain when standing. Agreed to ambulate around room but could only tolerate ~20 ft w/ FWW. Cues for heel toe walking. Pt returned to bed, Min A for slow descent and Mod A for sit<>sup/logroll back into bed. Pt left in bed w/ PA in room. Gait Assessment Gait Gait Assistance Required: Contact Guard Assist,1 Person Assist Distance (Feet) 20 Able to Maintain Weight Bearing Status Yes During Gait Assistive Devices Assistive Device Gait Belt,Front Wheeled Walker Orthotic/Prosthetic Devices or Brace: No Gait Deviations General Gait Pattern Ataxic,Decreased Stride Length ,Decreased Feet Clearance,Wide Based Gait Factors Limiting Gait Function Factors Limiting Gait Function Decreased Sensation,Pain Comments Gait Comments pt has had numbness prior to surgey in R LE, he notes it is not as numb now after surgery but putting pressure through his right leg caused spinal pain. He required heavy use of his UE on the FWW to decrease the strain to his back with gait. PT-Balance Assessment Sitting Balance and Reactions Static Sitting Balance Ability Fair Dynamic Sitting Balance Ability Fair Standing Balance and Reactions Static Standing Balance Ability Fair Dynamic Standing Balance Ability Fair Device Used FWW M5 PT-IP Objective Assessments Start: 08/07/22 10:41 Freq: NEEDED Status: Active Protocol: Document 08/07/22 10:43 [facility] (Rec: 08/07/22 11:01 [facility] [id number]) Orientation Orientation/Cognition Level of Alertness Alert Gross Range of Motion Upper Extremity ROM Assessment Within Functional Limits Lower Extremity ROM Assessment Bilaterally Impaired Strength Upper Extremity Strength Assessment Within Functional Limits Lower Extremity Strength Assessment Right Impaired Comments Strength Comments pt 3/5 for all active movements, further testing against resistance needs further assessment as pt was in pain in his low back Sensation Assessment Sensation Light Touch Intact Comments Sensation Comments pt notes he is able to feel light touch to his right LE, he described his numbness as internal in the leg he notes the only place he felt the numbness was in his calf this am on the right side M6 PT-IP Treatment Start: 08/07/22 10:41 Freq: NEEDED Status: Active Protocol: Document 08/08/22 11:46 KS (Rec: 08/08/22 13:27 KS [id number]) Physical Therapy Treatment Exercises Exercises Ankle Pumps Education Education Provided Precautions,Post-Op Packet, Safety M7 PT-IP Assessment and Plan Start: 08/07/22 10:41 Freq: NEEDED Status: Active Protocol: Document 08/08/22 11:46 KS (Rec: 08/08/22 13:27 KS [id number]) PT Summary Assessment and Plan Potential Rehabilitation Potential Good Summary Impairments Pain,ROM,Strength,Balance,Bed Mobility,Transfers,Gait, Activity Tolerance Progress Towards Goals Slow Progress due to Pain Assessment Summary Pt continues to report high amount of pain w/ mobility, requires Mod A for scooting, sit<>stand, and logroll. Able to tolerate short distances of ambulation w/ heavy WB through BUE. Pt lives alone and not safe to d/c home at this time. He will require SNF to improve strength and functional mobility independence. Goals Bed Mobility Goal Contact Guard Assistance Transfer Goal Contact Guard Assistance Gait Goal Contact Guard Assistance Gait Distance 50ft Other Goals pt will be able to ascend and descend 4 steps with handrail on right side Days to Meet Goals 5 Frequency of Treatment Frequency Of Treatment Twice a Day Treatment Plan Physical Therapy Treatment Plan Bed Mobility Training,Transfer Training,Gait Training, Therapeutic Exercise,Discharge Planning Precautions Lumbar Precautions Log Roll,No Twisting,Gait Belt above Incisional Area Weight Bearing Status Weight Bearing Status Full Weight Bearing Recommendations To Nursing Amount of Assist Needed 1 Person Assist Discharge Recommendations PT Discharge Recommendations SNF Rehab Transportation Needs at Discharge Private Vehicle
--- NOTE | 2022-08-08 11:59 | PM.PNPO.1 ---
Subjective Subjective Date Patient Seen: 08/08/22 Time Patient Seen: 11:59 Interval history: Observed pt ambulating w/ PT today. His gait is slow and antalgic and he is using a walker. He requires assistance getting in and out of bed and cuing when walking. He complains of pain about the incision sites and in a band-like distribution across his back below the incisions. He is currently getting oxycodone, hydrocodone, tramadol, and hydroxyzine. Prior to surgery, he was having issues with urinary incontinence. He says this symptom has worsened since surgery and is now accompanied by dysuria and feeling of bladder pain and fullness, even when he has just voided. A catheter was not placed during surgery. Exam Vital Signs (past 8 hours): - 08/08/22 08:50 Temperature 98.6 F Pulse Rate 76 Respiratory Rate 18 Blood Pressure 128/67 Pulse Oximetry 97 Oxygen Delivery Method Room Air Oxygen Flow Rate 0 Narrative Exam Narrative: 5/5 strength in hip flexors, quadiceps, hamstrings, DF, PF, EHL bilaterally. Sensation to light touch intact throughout BLE. Calves soft, compressible, nontender and without palpable cords or masses. Dressing changed today and is CDI. Objective Labs Result Diagrams: 08/07/22 08:14 [facility] Medical History Acid reflux Brain aneurysm (~2009) Crohn's disease Dyslexia Fistula Herniated disc HLD (hyperlipidemia) HTN (hypertension) Irregular heart beat TONIE on CPAP Sensitive skin Small bowel obstruction Spinal stenosis Surgical History History of colonoscopy Hx of abdominal surgery Hx of appendectomy Hx of total colectomy Social History household members: none Smoking Status: Former smoker alcohol intake: never Assessment & Plan Post-op Assessment and plan (1) S/P lumbar fusion: Assessment and Plan narrative: SNF tomorrow if better pain control. Will try adding Flexeril to help with back pain; will d/c hydroxyzine. (2) Dysuria-frequency syndrome: Assessment and Plan narrative: UA now w/ culture if indicated. Will follow and rx antibiotics if needed. Postoperative Procedures: Procedures Operation Date: 08/06/22 12:45 Actual Procedure Side Surgeon p L2-3 TLIF Elvia Billings MD Postoperative day: 2 Quality VTE Deep Vein Thrombosis/Pulmonary Embolism Present on Admission: No
[2022-08-08] MEDS: CYCLOBENZAPRINE 10 MG TABLET PO (12:19)
[2022-08-08 12:53] VITALS: BP 110/60; PULSE 54; RESP 16; TEMP 36.8; O2SAT 98
--- NOTE | 2022-08-08 13:01 | CM.DPNOTE ---
DCP Note According to Kelley at [facility]: Patient accepted for tomorrow if medically ready, needs transport. Need [facility] faxed, and updated COVID PCR tomorrow w/DC orders This HAND FINISHER following closely for coordination of this Dispo, likely tomorrow JW
--- NOTE | 2022-08-08 13:10 | OT.IPNOTE ---
Attempted to see pt for OT services. Pt sleeping with lunch present when OT entered. Assisted pt with total x2 for scooting up in bed and then set up for lunch. Pt feeding without assist. No OT charge. Will continue to follow as schedule permits.
--- NOTE | 2022-08-08 15:44 | PT.IPTN ---
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) Arthrodesis status (08/06/22) Surgery Performed Operation Date: 08/06/22 12:45 Actual Procedures p L2-3 TLIF - Elvia Billings MD Physical Therapy Treatment Note M2 PT-IP Current Condition Start: 08/07/22 10:41 Freq: NEEDED Status: Active Protocol: Document 08/07/22 10:43 [facility] (Rec: 08/07/22 11:01 [facility] [id number]) Physical Therapy Current Condition Current Condition Evaluation Date 08/07/22 Treatment Diagnosis Lumbar LILF Onset Date surgery 08/06/22 M3 PT-IP Subjective Start: 08/07/22 10:41 Freq: NEEDED Status: Active Protocol: Document 08/08/22 15:24 KS (Rec: 08/08/22 16:11 KS [id number]) Subjective Physical Therapy Visit Type Type Treatment Note Visit Start Time 15:24 Visit Stop Time 15:44 Total Visit Minutes 20 Number of JEWELRY CONSULTANT Visits 3 Physical Therapy Visit Comments Patient Comments Pt c/o increase pain and fatigue. Request pain meds, RN aware. M4 PT-IP Mobility and Gait Start: 08/07/22 10:41 Freq: NEEDED Status: Active Protocol: Document 08/08/22 15:24 KS (Rec: 08/08/22 16:11 KS [id number]) PT-Bed Mobility Assessment Rolling Type of Rolling Log Rolling Level of Assist Moderate Assistance Sit to Supine Sit to Supine Moderate Assistance,1 Person Assistance Scooting Scooting to Edge of Bed Moderate Assistance PT-Transfer Assessment Sit to and From Stand Sit to and from Stand Moderate Assistance,1 Person Assistance,Use of Upper Extremities Equipment Transfer Assistive Device Gait Belt,Front Wheeled Walker Orthotic/Prosthetic Devices or Brace: No Transfers Transfer Destination Bed Transfer Technique Pt ambulated w/ FWW Transfer Ability Level of Assist Moderate Assistance,1 Person Assistance,Use of Upper Extremities Comments Mobility Comments Pt in chair upon arrival and wanting to get back into bed. Mod A and cues for scooting EOC, Mod A and cues for sit<> stand w/ FWW. Pt relies heavily on BUE and c/o increased pain when standing. Able to tolerate increased ambulation distance this PM ~ 40 ft but w/ very slow pace, decreased stride and foot clearance and increased pain. Mod A fot sit<>Sup and logroll back into bed. Gait Assessment Gait Gait Assistance Required: Contact Guard Assist,1 Person Assist Distance (Feet) 40 Able to Maintain Weight Bearing Status Yes During Gait Assistive Devices Assistive Device Gait Belt,Front Wheeled Walker Orthotic/Prosthetic Devices or Brace: No Gait Deviations General Gait Pattern Ataxic,Decreased Stride Length ,Decreased Feet Clearance,Wide Based Gait Factors Limiting Gait Function Factors Limiting Gait Function Decreased Sensation,Pain Comments Gait Comments pt has had numbness prior to surgey in R LE, he notes it is not as numb now after surgery but putting pressure through his right leg caused spinal pain. He required heavy use of his UE on the FWW to decrease the strain to his back with gait. PT-Balance Assessment Sitting Balance and Reactions Static Sitting Balance Ability Fair Dynamic Sitting Balance Ability Fair Standing Balance and Reactions Static Standing Balance Ability Fair Dynamic Standing Balance Ability Fair Device Used FWW M5 PT-IP Objective Assessments Start: 08/07/22 10:41 Freq: NEEDED Status: Active Protocol: Document 08/07/22 10:43 [facility] (Rec: 08/07/22 11:01 [email or web address] [id number]) Orientation Orientation/Cognition Level of Alertness Alert Gross Range of Motion Upper Extremity ROM Assessment Within Functional Limits Lower Extremity ROM Assessment Bilaterally Impaired Strength Upper Extremity Strength Assessment Within Functional Limits Lower Extremity Strength Assessment Right Impaired Comments Strength Comments pt 3/5 for all active movements, further testing against resistance needs further assessment as pt was in pain in his low back Sensation Assessment Sensation Light Touch Intact Comments Sensation Comments pt notes he is able to feel light touch to his right LE, he described his numbness as internal in the leg he notes the only place he felt the numbness was in his calf this am on the right side M6 PT-IP Treatment Start: 08/07/22 10:41 Freq: NEEDED Status: Active Protocol: Document 08/08/22 15:24 KS (Rec: 08/08/22 16:11 KS [id number]) Physical Therapy Treatment Education Education Provided Precautions,Post-Op Packet, Safety M7 PT-IP Assessment and Plan Start: 08/07/22 10:41 Freq: NEEDED Status: Active Protocol: Document 08/08/22 15:24 KS (Rec: 08/08/22 16:11 KS [id number]) PT Summary Assessment and Plan Potential Rehabilitation Potential Good Summary Impairments Pain,ROM,Strength,Balance,Bed Mobility,Transfers,Gait, Activity Tolerance Progress Towards Goals Slow Progress due to Pain Assessment Summary Pt able to slightly increase gait distance this PM w/ FWW ( ~40 ft), but still requires Mod A for scooting, sit<>stand , and bed mobility. He has difficulty elevating LE while ambulating and walks very slowly due to pain and weakness as well as some R sided numbness. Pt lives alone and not safe to d/c home at this time. He will require SNF to improve strength and functional mobility independence. Goals Bed Mobility Goal Contact Guard Assistance Transfer Goal Contact Guard Assistance Gait Goal Contact Guard Assistance Gait Distance 50ft Other Goals pt will be able to ascend and descend 4 steps with handrail on right side Days to Meet Goals 5 Frequency of Treatment Frequency Of Treatment Twice a Day Treatment Plan Physical Therapy Treatment Plan Bed Mobility Training,Transfer Training,Gait Training, Therapeutic Exercise,Discharge Planning Precautions Lumbar Precautions Log Roll,No Twisting,Gait Belt above Incisional Area Weight Bearing Status Weight Bearing Status Full Weight Bearing Recommendations To Nursing Amount of Assist Needed 1 Person Assist Discharge Recommendations PT Discharge Recommendations SNF Rehab Transportation Needs at Discharge Private Vehicle
[2022-08-08 16:01] LABS: Appearance Urine UA CLEAR; Bilirubin Urine UA NEGATIVE (NEGATIVE); Color Urine UA YELLOW; Glucose Urine UA NEGATIVE (Negative); Ketones Urine UA NEGATIVE (NEGATIVE); Leukocyte Esterase Urine UA NEGATIVE (NEGATIVE); Nitrite Urine UA NEGATIVE (Negative); Occult Blood Urine UA NEGATIVE (Negative); Protein Urine UA TRACE (Negative); Urobilinogen Urine UA 0.2 E.U./dL (0.2); pH Urine UA 5.5 (4.5-8.0)
[2022-08-08 16:27] LABS: RBC Urine None Seen (0-5/HPF); Squamous Epithelial Cell Urine None Seen (0-5/HPF); WBC Urine 0-1/HPF (0-5/HPF)
[2022-08-08 16:28] LABS: Bacteria Urine Occasional (0-1); Culture Indicated Urine Cult Not Indicated; Hyaline Casts Urine 1-5/LPF
[2022-08-08 17:46] VITALS: BP 162/82; PULSE 81; RESP 18; TEMP 37.1; O2SAT 99
[2022-08-08] MEDS: ACETAMINOPHEN 325 MG TABLET 650 MG PO (18:45)
[2022-08-08] MEDS: ATORVASTATIN 20 MG TABLET 10 MG PO (20:16)
[2022-08-08 20:20] VITALS: BP 91/54; PULSE 71; RESP 18; TEMP 36.8; O2SAT 94
[2022-08-09 00:24] VITALS: BP 99/50; PULSE 56; RESP 18; TEMP 36.7; O2SAT 95
[2022-08-09] MEDS: TRAMADOL 50 MG TABLET PO ×3 (03:10→13:13)
[2022-08-09] MEDS: CYCLOBENZAPRINE 10 MG TABLET PO ×2 (03:10→13:13)
[2022-08-09 03:32] VITALS: BP 114/56; PULSE 63; RESP 18; TEMP 36.4; O2SAT 97
[2022-08-09] MEDS: SODIUM CHLORIDE 0.9% FLUSH 10 ML IV (04:52)
--- NOTE | 2022-08-09 05:12 | PC.NURSE ---
2300: assumed care of patient. woke twice thru the NOC, 1st request for tramadol/flexeril. + CSM. 2nd request for c/o heartburn. accepted a carton of whole milk, states this helped. attempted zofran via PIV, noticed right hand PIV is out, blood on bedding. IV removed, catheter intact. hand wrapped in soapy warm washcloth to get the dried blood from his fingers. 0600: requested turn onto side. laying on left side/facing the window, bed pad noted to have blood drainage on it, but this was from his PIV that was d/c'd earlier. pad changed. when Dr Billings's PA is noted doing rounds, will notify that his PIV dc'd and if this is ok to leave out til he discharges to SNF later today.
[2022-08-09 07:40] VITALS: BP 153/79; PULSE 78; RESP 18; TEMP 36.9; O2SAT 95
[2022-08-09] MEDS: ACETAMINOPHEN 325 MG TABLET 650 MG PO (08:56)
[2022-08-09] MEDS: TIZANIDINE 4 MG TABLET PO (08:57)
[2022-08-09] MEDS: AMLODIPINE 5 MG TABLET PO (08:57)
[2022-08-09] MEDS: GABAPENTIN 300 MG CAPSULE PO ×2 (08:57→13:14)
--- NOTE | 2022-08-09 09:41 | P.DS_ITS ---
History of Present Illness History of Present Illness Date Patient Seen: 08/09/22 Time Patient Seen: 09:41 Chief complaint: Lumbar TILF Narrative: Operative Date/Time/Diagnoses Date of procedure: 08/06/22 Time of procedure: 13:40 Pre-op diagnosis: 1. L2-3 spinal stenosis with radiculopathy 2. L2-3 spondylolisthesis Post-op diagnosis: same Procedure & Clinicians Procedure: 1. L2-3 Postero-lateral and posterior interbody fusion 2. L2-3 interbody cage placement. 3. L2-3 decompressive laminectomy with bilateral facetecomies 4. L2-3 Posterior non-segmental instrumentation 5. Sutter of bone marrow from iliac crest 6. Utilization of microsurgical technique and operating microscope Same procedure as scheduled: Yes Indications: Patient has been having chronic back pain and worsening lumbar radiculopathy. Patient failed multiple conservative management with worsening pain weakness and numbness in his lower extremity.? Patient has been having difficulty performing activity of daily living.? After discussing risks benefits of treatment options, patient elected proceed with surgery. Surgeon: Elvia Billings Demolition Expert: Kym Dumont Anesthesia Type: General Operative Notes Closure Type: primary Specimen(s): none sent Prosthetic devices, grafts, tissues, transplants, or devices: Globus revolve screws, Rise cage Estimated Blood Loss (mL): 100 Blood products transfused: none Discharge Providers Provider Date of admission: 08/06/22 10 Discharge Date: 08/09/22 Primary care physician: SCOTTY Ha Consults: 08/06/22 11:53 Consult to Respiratory Therapy Evaluate & Treat Comment: Physician Instructions: Evaluate and treat 08/06/22 18:42 Consult to Occupational Therapy Evaluate & Treat Comment: Physician Instructions: Evaluate and treat Consult to Physical Therapy Evaluate & Treat Comment: Physician Instructions: Evaluate and Treat Discharge provider: Suzy Delacruz PA-C Summary Hospital Course Discharge Diagnosis: Lumbar spinal stenosis and spondylolisthesis w/ radiculopathy, s/p lumbar fusion Hospital Course: Mr Lui's hospital course was complicated by poor pain control, slow progress w/ PT, and dysuria. He was evaluated by PT throughout his stay and was felt to be best suited for further rehab at a long-term facility prior to discharge. He continues to complain of pain in a band-like distribution across his sacrum; he denies leg pain. In terms of pain management, in review of his record, it appeared that he was not receiving ordered medication in a timely manner, so this will be addressed on paperwork for SNF. In terms of his dysuria, urinary frequency was a symptom prior to surgery and it sounds like it continued following surgery. A urinalysis was unremarkable, and on POD# 3 he was no longer complaining of pain with voiding. Exam Vital Signs (past 8 hours): - 08/09/22 03:32 08/09/22 07:40 08/09/22 09:23 Temperature 97.6 F 98.4 F Pulse Rate 63 78 Respiratory Rate 18 18 Blood Pressure 114/56 L 153/79 H Pulse Oximetry 97 95 Oxygen Delivery Method Room Air Oxygen Flow Rate 0 0 Oxygen Delivery Method Room Air Oxygen Flow Rate 0 Narrative Exam Narrative: 5/5 strength in hip flexors, quadriceps, hamstrings, DF, PF, EHL bilaterally. Sensation to light touch intact throughout BLE. Calves soft, compressible, nontender and without palpable cords or masses. Low back dressing with some bloody drainage on left, otherwise CDI. Objective Labs Result Diagrams: 08/07/22 08:14 Labs: Laboratory Results - last 24 hr 08/08/22 14:30 Urine Color Yellow Urine Appearance Clear Urine pH 5.5 Ur Specific [place] 1.010 Urine Protein Trace H Urine Glucose (UA) Negative Urine Ketones Negative Urine Occult Blood Negative Urine Nitrate Negative Urine Bilirubin Negative Urine Urobilinogen 0.2 Ur Leukocyte Esterase Negative Urine RBC None seen Urine WBC 0-1/hpf Ur Squamous Epith Cells None seen Urine Bacteria Occasional (0-1) Hyaline Casts 1-5/lpf Ur Culture Indicated? Cult not indicated PFSH Medical History Acid reflux Brain aneurysm (~2009) Crohn's disease Dyslexia Fistula Herniated disc HLD (hyperlipidemia) HTN (hypertension) Irregular heart beat TONIE on CPAP Sensitive skin Small bowel obstruction Spinal stenosis Surgical History History of colonoscopy Hx of abdominal surgery Hx of appendectomy Hx of total colectomy Social History household members: none Smoking Status: Former smoker alcohol intake: never Discharge Assessment & Plan Assessment and Plan Assessment: Lumbar spinal stenosis and spondylolisthesis w/ radiculopathy, s/p lumbar fusion Plan of Treatment: Discharge to SNF. Tylenol for mild pain, tramadol for moderate pain, oxycodone for severe pain, flexeril for muscle spasm. F/u in office in 2 weeks for staple removal and symptom eval. Discharge Plan Discharge Plan Patient Disposition: SNF Discharge orders & Medications Prescriptions: New acetaminophen 325 mg Tablet 650 mg PO Q6HR PRN (Reason: Pain, Mild (1-3)) Qty: 1 0RF cyclobenzaprine 10 mg Tablet 10 mg PO Q8HR PRN (Reason: Spasms) Qty: 60 0RF docusate sodium 100 mg Capsule 100 mg PO BID PRN (Reason: constipation) Qty: 1 0RF tramadol 50 mg Tablet 50 mg PO Q6H PRN (Reason: pain (scale score 4-6)) Qty: 60 0RF oxycodone 5 mg tablet 5 mg PO Q4H PRN (Reason: pain (scale score 7-10)) Qty: 60 0RF Continued simvastatin 10 mg Tablet 10 mg PO BEDTIME diphenoxylate-atropine 2.5-0.025 mg Tablet 2 tab PO QID PRN (Reason: related to multiple liquid stools) amlodipine 5 mg Tablet 5 mg PO DAILY aspirin 81 mg Tablet,Delayed Release (Dr/Ec) 81 mg PO DAILY methotrexate sodium 2.5 mg Tablet 2.5 mg PO SEEINSTR gabapentin 300 mg Capsule 300 mg PO TID tizanidine 4 mg Capsule 4 mg PO TID PRN (Reason: Muscle Spasm) Discontinued hydrocodone-acetaminophen 5-325 mg tablet 1 tab PO Q6H PRN (Reason: pain) Qty: 20 0RF Follow up/Referrals: Lois Mcpherson FNP-Katharina [Primary Care Provider] - Elvia Billings MD [Physician] - As previously scheduled (Follow up with Dr Billings on 08/19/2022 @ 11:00 am at [facility] in [place].) Diet/Activity/Treatments Diet: Diet as Tolerated Activity: No deep bending or twisting at the waist. No lifting > 10 pounds. Cold/Heat Therapy: Heating pad to back as needed for pain. Skin/Wound/Dressing Care Report to your healthcare provider any signs of infection, such as:: chills, fever, night sweats, unusual drainage and unusual redness Dressing: May shower, keep dressing as dry as possible. Remove dressing if it becomes wet inside and replace with clean, dry gauze. No bathing or otherwise soaking incisions. Do not apply any creams, lotions, or ointments to incisions. Special Rehabilitation Services Rehab type: Physical therapy and Occupational therapy Visit Report/Discharge Packet Instructions: DI for Constipation, How to Prevent Falls, DI for Taking Pain Medication, DI for Transforaminal Lumbar Interbody Fusion, DI for Prescription Opioid Use Stand Alone Forms: Surgery Discharge Discharge Data Primary Care Provider: Lois Mcpherson VTE Deep Vein Thrombosis/Pulmonary Embolism Present on Admission: No
--- NOTE | 2022-08-09 11:00 | PT.IPTN ---
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) Arthrodesis status (08/06/22) Surgery Performed Operation Date: 08/06/22 12:45 Actual Procedures p L2-3 TLIF - Elvia Billings MD Physical Therapy Treatment Note M2 PT-IP Current Condition Start: 08/07/22 10:41 Freq: NEEDED Status: Active Protocol: Document 08/07/22 10:43 [facility] (Rec: 08/07/22 11:01 [facility] [id number]) Physical Therapy Current Condition Current Condition Evaluation Date 08/07/22 Treatment Diagnosis Lumbar LILF Onset Date surgery 08/06/22 M3 PT-IP Subjective Start: 08/07/22 10:41 Freq: NEEDED Status: Active Protocol: Document 08/09/22 10:44 KS (Rec: 08/09/22 11:43 KS [id number]) Subjective Physical Therapy Visit Type Type Treatment Note Visit Start Time 10:44 Visit Stop Time 11:00 Total Visit Minutes 16 Number of FACILITY MAINTENANCE TECHNICIAN Visits 4 Physical Therapy Visit Comments Patient Comments Pt agreeable to working w/ therapy. Therapy Pain Assessment Pain When Pain Assessed During Mobility Pain Present Pain Present Pain Reported Location back Scale Used not quantified Description With Movement Pain Management Techniques Distraction,Modification of Treatment,Re-positioning, Timing of Activity with Medications M4 PT-IP Mobility and Gait Start: 08/07/22 10:41 Freq: NEEDED Status: Active Protocol: Document 08/09/22 10:44 KS (Rec: 08/09/22 11:43 KS [id number]) PT-Bed Mobility Assessment Rolling Type of Rolling Log Rolling Level of Assist Moderate Assistance Supine to Sit Supine to Sit Minimal Assistance,1 Person Assistance,Bedrails Scooting Scooting to Edge of Bed Moderate Assistance PT-Transfer Assessment Sit to and From Stand Sit to and from Stand Moderate Assistance,1 Person Assistance,Use of Upper Extremities Equipment Transfer Assistive Device Gait Belt,Front Wheeled Walker Orthotic/Prosthetic Devices or Brace: No Transfers Transfer Destination Chair Transfer Technique Pt ambulated w/ FWW Transfer Ability Level of Assist Moderate Assistance,1 Person Assistance,Use of Upper Extremities Comments Mobility Comments Pt in bed upon arrival and agreeable to mobilize. Able to recall spinal precautions. Still requiring Mod A for logroll and Min A for sidelying<>sit. Mod A for scooting EOB and Mod A for sit <>stand w/ FWW w/ cues for hand placement. Pt c/o pain w/ mobility, especially sit<> stand. He ambulated ~20 ft w/ FWW but then requested to get into chair due to pain and fatigue. Agreeable to LE exercises to promote blood flow and strengthening. Pt left in chair w/ all needs in reach. Gait Assessment Gait Gait Assistance Required: Contact Guard Assist,1 Person Assist Distance (Feet) 20 Able to Maintain Weight Bearing Status Yes During Gait Assistive Devices Assistive Device Gait Belt,Front Wheeled Walker Orthotic/Prosthetic Devices or Brace: No Gait Deviations General Gait Pattern Ataxic,Decreased Stride Length ,Decreased Feet Clearance,Wide Based Gait Factors Limiting Gait Function Factors Limiting Gait Function Decreased Sensation,Pain Comments Gait Comments Limited in distance by pain and fatigue. PT-Balance Assessment Sitting Balance and Reactions Static Sitting Balance Ability Good Dynamic Sitting Balance Ability Good Standing Balance and Reactions Static Standing Balance Ability Fair Dynamic Standing Balance Ability Fair Device Used FWW M5 PT-IP Objective Assessments Start: 08/07/22 10:41 Freq: NEEDED Status: Active Protocol: Document 08/07/22 10:43 [facility] (Rec: 08/07/22 11:01 [facility] [id number]) Orientation Orientation/Cognition Level of Alertness Alert Gross Range of Motion Upper Extremity ROM Assessment Within Functional Limits Lower Extremity ROM Assessment Bilaterally Impaired Strength Upper Extremity Strength Assessment Within Functional Limits Lower Extremity Strength Assessment Right Impaired Comments Strength Comments pt 3/5 for all active movements, further testing against resistance needs further assessment as pt was in pain in his low back Sensation Assessment Sensation Light Touch Intact Comments Sensation Comments pt notes he is able to feel light touch to his right LE, he described his numbness as internal in the leg he notes the only place he felt the numbness was in his calf this am on the right side M6 PT-IP Treatment Start: 08/07/22 10:41 Freq: NEEDED Status: Active Protocol: Document 08/09/22 10:44 KS (Rec: 08/09/22 11:43 KS [id number]) Physical Therapy Treatment Exercises Exercises Ankle Pumps,Gluteal Sets,Quad Sets Education Education Provided Precautions,Post-Op Packet, Safety M7 PT-IP Assessment and Plan Start: 08/07/22 10:41 Freq: NEEDED Status: Active Protocol: Document 08/09/22 10:44 KS (Rec: 08/09/22 11:43 KS [id number]) PT Summary Assessment and Plan Potential Rehabilitation Potential Good Summary Impairments Pain,ROM,Strength,Balance,Bed Mobility,Transfers,Gait, Activity Tolerance Progress Towards Goals Slow Progress due to Pain,Slow Progress due to Activity Tolerance Assessment Summary Pt requiring Min to Mod A for bed mobility and Mod A for sit <>stand w/ FWW. He continues to demonstrate difficulty scooting and has limited tolerance for ambulation due to pain and fatigue. Able to tolerate LE exercises today. He has difficulty elevating LE while ambulating and walks very slowly due to pain and weakness as well as some R sided numbness. Pt lives alone and not safe to d/c home at this time. He will require SNF to improve strength and functional mobility independence. Goals Bed Mobility Goal Contact Guard Assistance Transfer Goal Contact Guard Assistance Gait Goal Contact Guard Assistance Gait Distance 50ft Other Goals pt will be able to ascend and descend 4 steps with handrail on right side Days to Meet Goals 5 Frequency of Treatment Frequency Of Treatment Twice a Day Treatment Plan Physical Therapy Treatment Plan Bed Mobility Training,Transfer Training,Gait Training, Therapeutic Exercise,Discharge Planning Precautions Lumbar Precautions Log Roll,No Twisting,Gait Belt above Incisional Area Weight Bearing Status Weight Bearing Status Full Weight Bearing Recommendations To Nursing Amount of Assist Needed 1 Person Assist Discharge Recommendations PT Discharge Recommendations SNF Rehab Transportation Needs at Discharge Private Vehicle
--- NOTE | 2022-08-09 11:01 | CM.DPNOTE ---
DC Note DC to [facility] today via private auto, friend's pov. Patient being picked up at approx. 1400 Updated RN Yuliana and Kelley at [facility]- report should be to Jennifer Palacios charge nurse Faxed completed and signed DC ppk- med list, DC summary, SNF orders and PASRR COVID PCR updated Patient remains aware and agreeable JW
[2022-08-09 11:22] LABS: COVID19 -Nasal RAPID Negative (Negative)
--- NOTE | 2022-08-09 12:25 | OT.IP.TRT ---
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) Arthrodesis status (08/06/22) Surgery Performed Operation Date: 08/06/22 12:45 Actual Procedures p L2-3 TLIF - Elvia Billings MD Occupational Therapy Treatment Note M2 OT-IP Current Condition Start: 08/07/22 11:58 Freq: Status: Active Protocol: Document 08/07/22 09:57 [facility] (Rec: 08/07/22 12:32 [facility] [id number]) Occupational Therapy Current Condition Current Condition Evaluation Date 08/07/22 Treatment Diagnosis S/p L2-3 TLIF Diagnosis Onset Date 08/06/22 Post Operative Precautions Lumbar Precautions Log Roll,No Twisting,Limit Bending,Lifting Restriction of 10 lbs,Gait Belt above Incisional Area M3 OT- IP Subjective and Pain Start: 08/07/22 11:58 Freq: Status: Active Protocol: Document 08/09/22 12:52 [facility] (Rec: 08/09/22 13:05 [facility] [id number]) OT- Subjective Occupational Therapy Visit Type Type Progress Note Visit Start Time 11:39 Visit Stop Time 12:25 Total Visit Minutes 46 Notes Pt agreeable to OT services. OT Pain Assessment Pain When Pain Assessed At Rest Pain Present Pain Present Pain Reported Location back Intensity 2 Scale Used Numeric (0 - 10) Management Techniques Modification of Treatment,Re- positioning M4 OT- IP ADL's Start: 08/07/22 11:58 Freq: Status: Active Protocol: Document 08/09/22 12:52 [facility] (Rec: 08/09/22 13:05 [facility] [id number]) OT [id number] Comments OT Self-Feeding Comments not meal time OT ADL-Grooming General Evaluation Grooming Ability Standby Assistance Areas Needing Assistance Face Washing Comments OT Grooming Comments standing at sink OT ADL-Oral Care General Eval Oral Care Ability Standby Assistance Areas of Assistance Brushing Teeth Comments Oral Care Comments standing at sink OT ADL-Dressing General Eval Upper Body Dressing Ability Independent Lower Body Dressing Ability Standby Assistance Areas Needing Assistance Retrieving/Set-up of Clothing, Pull-Over Shirt,Underpants/ Brief,Pants/Shorts,Socks,Shoes Assistive Devices Dressing Assistive Devices Gun Striper,Sock Aid Comments OT Dressing Comments Pt performed dressing seated in chair OT ADL-Toileting General Evaluation Toileting Ability Standby Assistance Comments OT Toileting Comments Pt urinated and had BM seated on BSC over toilet OT ADL-Bathing Bathing Type Bathing Type Sponge Bath General Evaluation Bathing Ability Minimal Assistance Areas Needing Assistance Retrieving/Setting Up Items Comments OT Bathing Comments Pt performed bathing seated in chair. Min a for LB bathing and back. M5 OT- IP IADL's Start: 08/07/22 11:58 Freq: Status: Active Protocol: Document 08/07/22 09:57 [facility] (Rec: 08/07/22 12:32 [facility] [id number]) OT-Instrumental Activities of Daily Living Home Safety Awareness Awareness of Need for Assistance at Home Good Awareness Medication Management Medication Management Comments Pt does his own. Money Management Money Management Comments Pt does his own. Meal Preparation Meal Preparation Comments Pt does his own. Telecommunicator Telecommunicator Comments Pt states lately has been harder to do due to his pain. M6 OT- IP Functional Cognition Start: 08/07/22 11:58 Freq: Status: Active Protocol: Document 08/07/22 09:57 [facility] (Rec: 08/07/22 12:32 [facility] [id number]) Cognitive Factors Limiting Selfcare Function Cognitive Ability Level of Alertness Alert Patient Orientation Name Attention Span Ability Capable of Focused Attention, Capable of Sustained Attention Ability to Follow Commands Able to Follow One Step Commands Memory Description No Deficits Noted Safety Awareness No Deficits Noted Cognitive Comments Cognitive Assessment Comments Pt able to follow his back precautions and follow commands during ADL and IADL needs. OT- Vision and Hearing OT- Hearing Assessment OT- Hearing Assessment WFL OT- Vision Assessment Visual Acuity Glasses For Reading M7 OT- IP Mobility and Balance Start: 08/07/22 11:58 Freq: Status: Active Protocol: Document 08/09/22 12:52 [facility] (Rec: 08/09/22 13:05 [facility] [id number]) OT-Transfer Assessment Sit to and From Stand Sit to and from Stand Contact Guard Assistance Transfers Transfer Ability Contact Guard Assistance Technique Transfer Destination Chair,Toilet Transfer Technique Stand Step Pivot Devices Transfer Assistive Devices Gait Belt,Front Wheeled Walker Comments Mobility Comments mobility around the room OT- Balance Assessment Sitting Balance and Reactions Static Sitting Balance Ability Normal Dynamic Sitting Balance Ability Good M8 OT- IP Objective Assessments Start: 08/07/22 11:58 Freq: Status: Active Protocol: Document 08/07/22 09:57 [facility] (Rec: 08/07/22 12:32 [facility] [id number]) OT Gross Range of Motion Upper Extremity Range of Motion Assessment Within Functional Limits OT Strength Upper Extremity Strength Assessment Within Functional Limits OT-Muscle Tone Assessment Muscle Tone WNL Yes OT Sensation Assessment Comments Summary Comments intact for light touch M9 OT- IP Assessment and Plan Start: 08/07/22 11:58 Freq: Status: Active Protocol: Document 08/09/22 12:52 [facility] (Rec: 08/09/22 13:05 [facility] [id number]) OT Summary Assessment and Plan Potential Rehabilitation Potential Good Analytic Complexity at Evaluation Low Summary OT Impairments Pain,Balance,Functional Mobility,Grooming,Dressing, Toileting,Bathing,Toilet Transfers,Shower Transfers, Activity Tolerance Progress Towards Goals Progressing Toward Goals,Slow Progress due to Pain Assessment Summary Pt planned for discharge to [facility]. Pt participated at length with ADLs and was able to don LB dressing with minimal verbal instructions using the credit correspondence clerk and sock aid. Pt will continue to benefit from therapy services. Goals Self-Feeding Goal Independent Grooming Goal Independent Dressing Goal Independent Toileting Goal Independent Bathing Goal Independent Toilet Transfer Goal Independent Shower Transfer Goal Independent Days to Meet Goals 15 Frequency of Treatment Frequency Of Treatment Once a Day Treatment Plan OT Treatment Plan ADL Training,Functional Mobility,Patient/Family Education,Discharge Planning Other Treatment Recommendations and Next shower Treatment Focus Discharge Recommendations OT Discharge Recommendations SNF Rehab Transportation Needs at Discharge Wheelchair/Cabulance
--- NOTE | 2022-08-09 15:16 | PC.NURSE ---
Discharge: Pt ready for d/c to [facility] in [place]. Report given to admitting nurse Andressa. Reviewed hospital course. Pt's adl's, pain issues, and his problems with his bowels which has left him with some chronic diarrhea issues. Her questions were answered. Revised diet order per their request. Discussed lami precautions and wound care, dressing was changed yesterday to a coversite. 1 extra dressing supplied until they can get their own supply. Pt reports he has had increased voiding and some urgency, a UA was done and was negative. The rest of her questions were answered. Pt transfered to [facility] via auto with a friend.
== END 2022-08-09 14:00 | DRG 455 ==
PROVIDERS: Physician Assistant; Admitting Provider Orthopaedic Surgery Orthopaedic Surgery of the Spine; PCP Registered Nurse; Referring Provider Orthopaedic Surgery Orthopaedic Surgery of the Spine; Visit Provider Orthopaedic Surgery Orthopaedic Surgery of the Spine
PROC: 0SG00AJ Fusion of Lumbar Vertebral Joint with Interbody Fusion Device, Posterior Approach, Anterior Column, Open Approach (ICD-10-PCS; principal; 2022-08-06 12:45)
DX: M43.16 Spondylolisthesis, lumbar region (principal); M48.062 Spinal stenosis, lumbar region with neurogenic claudication; M54.16 Radiculopathy, lumbar region; R30.0 Dysuria; R32 Unspecified urinary incontinence; R35.0 Frequency of micturition; G89.18 Other acute postprocedural pain; E78.5 Hyperlipidemia, unspecified; I10 Essential (primary) hypertension; Z87.891 Personal history of nicotine dependence; Z20.822 Contact with and (suspected) exposure to COVID-19
CPT/HCPCS: 36415; 72100; 76000; 81001; 82962; 85014; 85018; 87635; 97116; 97162; 97165; 97530; 97535; C9803; C9290; J0131; J0171; J0690; J1170; J2405; J3010